=== PATIENT | female | born 1985 | race African-American/Black ===

== ENCOUNTER 2024-04-26 09:59 | Emergency (ER) | payer OTHER ==
[2024-04-26 10:07] VITALS: BP 113/69; TEMP 96.9; O2SAT 100
== END 2024-04-26 12:42 | disposition home or self-care (01) ==
LOC: M ED 09:59
DX: J09.X2 Influenza due to identified novel influenza A virus with other respiratory manifestations (principal); Z20.9 Contact with and (suspected) exposure to unspecified communicable disease